=== PATIENT | female | born 1955 ===

== ENCOUNTER 2019-01-08 15:53 | Outpatient (REF) | payer MEDICARE, SELFPAY ==
[2019-01-08 16:37] LABS: PHENYTOIN (DILANTIN) 11.2 ug/mL (10.0-20.0)
== END 2019-01-08 16:13 ==
LOC: LBN 15:53
PROVIDERS: Visit Provider Internal Medicine
DX: G40.89 Other seizures (principal); Z51.81 Encounter for therapeutic drug level monitoring; Z79.899 Other long term (current) drug therapy
CPT/HCPCS: 80185